=== PATIENT | female | born 1955 | race African-American/Black ===

== ENCOUNTER 2020-08-13 14:26 | Outpatient (CLI) | payer MEDICARE | END 2020-08-13 14:27 | disposition home or self-care (01) | LOC: CSHWCC 14:26 | PROVIDERS: ATTEND Nurse Practitioner Family | DX: I87.311 Chronic venous hypertension (idiopathic) with ulcer of right lower extremity (principal); L97.319 Non-pressure chronic ulcer of right ankle with unspecified severity; K57.92 Diverticulitis of intestine, part unspecified, without perforation or abscess without bleeding; R60.0 Localized edema; I87.2 Venous insufficiency (chronic) (peripheral); M06.4 Inflammatory polyarthropathy | CPT/HCPCS: 99203; G0463 ==

== ENCOUNTER 2021-02-01 10:21 | Outpatient (CLI) | payer MEDICARE | END 2021-02-01 10:22 | disposition home or self-care (01) | LOC: CSHMAMMO 10:21 | PROVIDERS: ATTEND Internal Medicine | DX: Z12.31 Encounter for screening mammogram for malignant neoplasm of breast (principal) | CPT/HCPCS: 77063; 77067 ==

== ENCOUNTER 2022-02-03 10:27 | Outpatient (CLI) | payer MEDICARE | END 2022-02-03 10:28 | disposition home or self-care (01) | LOC: CSHMAMMO 10:27 | PROVIDERS: ATTEND Obstetrics & Gynecology Gynecology | DX: Z12.31 Encounter for screening mammogram for malignant neoplasm of breast (principal) | CPT/HCPCS: 77063; 77067 ==

== ENCOUNTER 2023-02-04 10:30 | Outpatient (CLI) | payer MEDICARE | END 2023-02-04 10:31 | disposition home or self-care (01) | LOC: CSHMAMMO 10:30 | PROVIDERS: ATTEND Internal Medicine | DX: Z12.31 Encounter for screening mammogram for malignant neoplasm of breast (principal) | CPT/HCPCS: 77063; 77067 ==

== ENCOUNTER 2024-02-12 10:14 | Outpatient (CLI) | payer BC, MEDICARE | END 2024-02-12 10:15 | disposition home or self-care (01) | LOC: CSHMAMMO 10:14 | PROVIDERS: ATTEND Internal Medicine | DX: Z12.31 Encounter for screening mammogram for malignant neoplasm of breast (principal); Z13.820 Encounter for screening for osteoporosis | CPT/HCPCS: 77063; 77067; 77080 ==

== ENCOUNTER 2025-02-14 09:10 | Outpatient (CLI) | payer MEDICARE | END 2025-02-14 09:11 | disposition home or self-care (01) | LOC: CSHMAMMO 09:10 | PROVIDERS: ATTEND Internal Medicine | DX: Z12.31 Encounter for screening mammogram for malignant neoplasm of breast (principal) | CPT/HCPCS: 77063; 77067 ==